=== PATIENT | female | born 1980 | race Two or more races ===

== ENCOUNTER 2021-02-05 04:31 | Day surgery (SDC) | payer BC ==
[2021-02-04 14:19] VITALS: BMI 26.4
[2021-02-05] MEDS ORDERED: PROMETHAZINE HCL 25 MG/1 ML VIAL IVPUSH PRN (14:06)
[2021-02-05] MEDS ORDERED: oxyCODONE HCL 5 MG TABLET PO PRN (14:06)
[2021-02-05] MEDS ORDERED: LACTATED RINGERS SOLUTION 1,000 ML IV SCH (14:15)
[2021-02-05] MEDS ORDERED: MIDAZOLAM HCL 2 MG/2 ML SINGLE DOSE VIAL ONE (14:44)
[2021-02-05] MEDS ORDERED: PROPOFOL 20 ML ONE (14:44)
[2021-02-05] MEDS ORDERED: LIDOCAINE HCL/PF 2% SDV 5ML VIAL ONE (14:44)
[2021-02-05] MEDS ORDERED: DEXAMETHASONE SOD PHOSPHATE 4 MG/1 ML VIAL ONE (14:44)
[2021-02-05 18:27] VITALS: BP 146/73; PULSE 85; TEMP 98.3
== END 2021-02-05 18:33 | disposition home or self-care (01) ==
LOC: JASU-SURG 04:31
PROVIDERS: ATTEND Obstetrics & Gynecology
PROC: 0UDB8ZX Extraction of Endometrium, Via Natural or Artificial Opening Endoscopic, Diagnostic (ICD-10-PCS; 2021-02-05)
PROC: 0UB98ZZ Excision of Uterus, Via Natural or Artificial Opening Endoscopic (ICD-10-PCS; principal; 2021-02-05 15:00)
PROC: 0UB98ZZ Excision of Uterus, Via Natural or Artificial Opening Endoscopic (ICD-10-PCS; 2021-02-05 15:00)
DX: N84.0 Polyp of corpus uteri (principal); N92.1 Excessive and frequent menstruation with irregular cycle; D64.9 Anemia, unspecified; D25.0 Submucous leiomyoma of uterus
CPT/HCPCS: 81025; 88305-TC; 94760

== ENCOUNTER 2021-06-24 11:09 | Day surgery (SDC) | payer BC ==
[2021-06-24 11:27] VITALS: BMI 26.4
[2021-06-24 13:51] LABS: EOS % 3.9 % (0-4.5); HEMATOCRIT 23.1 % (32.4-45.2); HEMOGLOBIN 7.8 GM/dL (10.7-15.3); LYMPH % 29.8 % (8-40); MCH 26.2 pg (25.7-33.7); MCHC 33.6 g/dl (32.0-36.0); MEAN CELL VOLUME 77.9 fl (80-96); MEAN PLT VOLUME 6.8 fl (7.5-11.1); MONO % 6.8 % (3.8-10.2); NEUT % 58.5 % (42.8-82.8); PLATELET COUNT 431 10^3/uL (134-434); RBC 2.97 M/mm3 (3.60-5.2); RDW 16.2 % (11.6-15.6); WHITE BLOOD COUNT 5.3 K/mm3 (4.0-10.0)
[2021-06-24 13:59] LABS: EPI CELLS 7 /uL (0-25.1); HYALINE CASTS 1 /uL (0-3.1); PH,URINE 5.5 (5.0-8.0); URINE APPEARANCE CLEAR; URINE BACTERIA 26 /uL (0-1359); URINE BILIRUBIN NEGATIVE (NEGATIVE); URINE COLOR YELLOW; URINE GLUCOSE (UA) NEGATIVE (NEGATIVE); URINE KETONE NEGATIVE (NEGATIVE); URINE LEUK ESTERASE NEGATIVE (NEGATIVE); URINE NITRITE NEGATIVE (NEGATIVE); URINE PROTEIN TRACE (NEGATIVE); URINE RBC 1093 /uL (0-23.9); URINE WBC 8 /uL (0-25.8)
[2021-06-24] MEDS ORDERED: LACTATED RINGERS SOLUTION 1,000 ML/1,000 ML INFUS.BAG IV SCH (14:15)
[2021-06-24 14:30] LABS: ALBUMIN 3.8 g/dl (3.4-5.0); BLOOD UREA NITROGEN 12.7 mg/dL (7-18)
[2021-06-24 14:33] LABS: CREATININE 0.6 mg/dL (0.55-1.3)
[2021-06-24 14:35] LABS: BILIRUBIN,TOTAL 0.4 mg/dL (0.2-1); TOT PROT 7.4 g/dl (6.4-8.2)
[2021-06-24] MEDS ORDERED: PROPOFOL 20 ML ONE (15:37)
[2021-06-24] MEDS ORDERED: LIDOCAINE HCL 1%, 10 MG/ML (20ML VIAL) ONE (15:40)
[2021-06-24] MEDS ORDERED: IBUPROFEN 800 MG/8 ML IJ IVPB PRN (15:58)
[2021-06-24] MEDS ORDERED: ONDANSETRON 4 MG/2 ML VIAL IVPUSH PRN (15:58)
[2021-06-24] MEDS ORDERED: IBUPROFEN 600 MG TABLET (FP) PO PRN (15:58)
[2021-06-24] MEDS ORDERED: oxyCODONE HCL 5 MG TABLET PO PRN (15:58)
[2021-06-24] MEDS ORDERED: ELECTROLYTE-148 SOLN 1,000 ML IV SCH (16:00)
[2021-06-24 19:33] VITALS: BP 134/77; PULSE 71; TEMP 98.9
== END 2021-06-24 19:05 | disposition home or self-care (01) ==
LOC: JER 11:09 → JASUSAT 14:08
PROVIDERS: ATTEND Obstetrics & Gynecology
PROC: 0UB97ZX Excision of Uterus, Via Natural or Artificial Opening, Diagnostic (ICD-10-PCS; 2021-06-24)
PROC: 0UDB7ZX Extraction of Endometrium, Via Natural or Artificial Opening, Diagnostic (ICD-10-PCS; 2021-06-24)
PROC: 0UJD8ZZ Inspection of Uterus and Cervix, Via Natural or Artificial Opening Endoscopic (ICD-10-PCS; 2021-06-24)
PROC: 0UB98ZZ Excision of Uterus, Via Natural or Artificial Opening Endoscopic (ICD-10-PCS; principal; 2021-06-24 14:00)
DX: N92.1 Excessive and frequent menstruation with irregular cycle (principal); D25.0 Submucous leiomyoma of uterus; D64.9 Anemia, unspecified; N84.0 Polyp of corpus uteri
CPT/HCPCS: 36415; 36430; 80053; 81003; 84703; 85025; 86922; 87077; 87086; 88305-TC; 94760; 99285-25; C9803; P9058; U0003; U0005

== ENCOUNTER 2021-11-23 04:16 | Inpatient (IN) | payer BC ==
[2021-11-22 08:19] VITALS: BMI 21.5
[2021-11-23] MEDS ORDERED: BUPIVACAINE LIPOSOME/PF (EXPAREL) 266 MG/20 ML VIAL ONE (07:16)
[2021-11-23] MEDS ORDERED: MIDAZOLAM HCL 2 MG/2 ML SINGLE DOSE VIAL ONE ×2 (08:00)
[2021-11-23] MEDS ORDERED: LIDOCAINE HCL/PF 2% SDV 5ML VIAL ONE (08:55)
[2021-11-23] MEDS ORDERED: ONDANSETRON 4 MG/2 ML VIAL ONE ×2 (08:55→13:29)
[2021-11-23] MEDS ORDERED: DEXAMETHASONE SOD PHOSPHATE 4 MG/1 ML VIAL ONE (08:55)
[2021-11-23] MEDS ORDERED: ceFAZolin SODIUM 1 GM VIAL ONE ×3 (08:55→17:08)
[2021-11-23] MEDS ORDERED: ROCURONIUM BROMIDE 100 MG/10 ML VIAL ONE (08:55)
[2021-11-23] MEDS ORDERED: HYDROmorphone HCl 2 MG/ML VIAL ONE ×2 (08:55→13:29)
[2021-11-23] MEDS ORDERED: PROPOFOL 20 ML ONE (08:55)
[2021-11-23] MEDS ORDERED: ONDANSETRON 4 MG/2 ML VIAL IVPUSH PRN ×2 (09:06→11:46)
[2021-11-23] MEDS ORDERED: PROMETHAZINE HCL 25 MG/1 ML VIAL IVPB PRN (09:06)
[2021-11-23] MEDS ORDERED: LACTATED RINGERS SOLUTION 1,000 ML IV SCH (09:15)
[2021-11-23] MEDS ORDERED: GLYCOPYRROLATE 0.2 MG/1 ML VIAL ONE (10:22)
[2021-11-23] MEDS ORDERED: NEOSTIGMINE METHYLSULFATE 0.5 MG/ML - 10 ML MDV ONE (10:22)
[2021-11-23] MEDS ORDERED: KETOROLAC TROMETHAMINE 30 MG/1 ML VIAL ONE (10:41)
[2021-11-23] MEDS ORDERED: HYDROmorphone HCl 2 MG/ML VIAL IVPUSH ONE (11:29)
[2021-11-23] MEDS ORDERED: ACETAMINOPHEN 1000 MG/100 ML BAG IVPB ONE ×2 (11:30→11:40)
[2021-11-23] MEDS ORDERED: ACETAMINOPHEN INJECTION 100 ML IVPB ONE (11:35)
[2021-11-23] MEDS ORDERED: oxyCODONE HCL 5 MG TABLET PO PRN (11:46)
[2021-11-23] MEDS ORDERED: BISACODYL 5 MG TABLET.DR (FP) PO PRN (11:48)
[2021-11-23] MEDS ORDERED: SIMETHICONE 80 MG TAB.CHEW (FP) PO PRN (11:49)
[2021-11-23] MEDS ORDERED: HYDROmorphone HCl 2 MG/ML VIAL IVPB ONE (13:40)
[2021-11-23] MEDS ORDERED: HYDROmorphone *PCA* 10MG/50ML DISP.SYRIN ONE (14:14)
[2021-11-23] MEDS ORDERED: HYDROmorphone *PCA* 10MG/50ML DISP.SYRIN PCA ONE (14:20)
[2021-11-23] MEDS ORDERED: ceFAZolin SODIUM 1 GM VIAL IVPB ONE (17:00)
[2021-11-23] MEDS: CEFAZOLIN 2 GM in DEXTROSE 5%-WATER - 100 ML IVPB SCH ×2 (17:44→18:18)
[2021-11-23] MEDS ORDERED: IBUPROFEN 800 MG/8 ML IJ IVPB ONE (17:50)
[2021-11-23] MEDS: IBUPROFEN 800 MG/8 ML IJ IVPB PRN (17:55)
[2021-11-23] MEDS ORDERED: ceFAZolin 2 GRAM PREMIX BAG IVPB SCH (18:00)
[2021-11-23] MEDS: ELECTROLYTE-148 SOLN 1,000 ML IV SCH (18:17)
[2021-11-23] MEDS: HYDROmorphone *PCA* 10MG/50ML DISP.SYRIN PCA SCH (18:18)
[2021-11-23] MEDS: LABETALOL HCL 200 MG TABLET (FP) PO SCH (21:41)
[2021-11-24] MEDS: IBUPROFEN 600 MG TABLET (FP) PO PRN ×2 (01:17→17:12)
[2021-11-24] MEDS: ELECTROLYTE-148 SOLN 1,000 ML IV SCH ×2 (01:20→17:44)
[2021-11-24] MEDS: CEFAZOLIN 2 GM in DEXTROSE 5%-WATER - 100 ML IVPB SCH ×2 (01:47→11:15)
[2021-11-24] MEDS: IBUPROFEN 800 MG/8 ML IJ IVPB PRN (08:19)
[2021-11-24 09:03] LABS: HEMATOCRIT 26.6 % (32.4-45.2); HEMOGLOBIN 8.9 GM/dL (10.7-15.3); MCH 23.5 pg (25.7-33.7); MCHC 33.4 g/dl (32.0-36.0); MEAN CELL VOLUME 70.5 fl (80-96); MEAN PLT VOLUME 6.9 fl (7.5-11.1); PLATELET COUNT 413 10^3/uL (134-434); RBC 3.77 M/mm3 (3.60-5.2); RDW 26.4 % (11.6-15.6); WHITE BLOOD COUNT 8.3 K/mm3 (4.0-10.0)
[2021-11-24 09:22] LABS: BLOOD UREA NITROGEN 7.3 mg/dL (7-18); CALCIUM 8.2 mg/dL (8.5-10.1)
[2021-11-24 09:26] LABS: CREATININE 0.6 mg/dL (0.55-1.3)
[2021-11-24] MEDS ORDERED: ENOXAPARIN NA (PORCINE) 40 MG/0.4 ML DISP.SYRIN SQ SCH (10:00)
[2021-11-24] MEDS: LABETALOL HCL 200 MG TABLET (FP) PO SCH (10:02)
[2021-11-24] MEDS ORDERED: oxyCODONE HCL 5 MG TABLET PO PRN (12:10)
[2021-11-24 15:15] VITALS: BP 112/76; PULSE 76; TEMP 97.5
[2021-11-24] MEDS: HYDROmorphone *PCA* 10MG/50ML DISP.SYRIN PCA SCH (17:44)
== END 2021-11-24 18:09 | disposition home or self-care (01) | DRG 743 ==
LOC: J2C 04:16 → J8W 17:25
PROVIDERS: ADMIT Obstetrics & Gynecology; ATTEND Obstetrics & Gynecology
PROC: 0UT70ZZ Resection of Bilateral Fallopian Tubes, Open Approach (ICD-10-PCS; 2021-11-23)
PROC: 0UT9FZL Resection of Uterus, Supracervical, Via Natural or Artificial Opening With Percutaneous Endoscopic Assistance (ICD-10-PCS; 2021-11-23)
PROC: 0UT90ZL Resection of Uterus, Supracervical, Open Approach (ICD-10-PCS; principal; 2021-11-23 08:30)
DX: N80.0 Endometriosis of uterus (principal); D25.9 Leiomyoma of uterus, unspecified; N92.1 Excessive and frequent menstruation with irregular cycle
CPT/HCPCS: 36415; 80048; 81025; 85027; 86850; 86900; 86901; 88307-TC; 94010; 94760